=== PATIENT | female | born 1980 | race Asian ===

== ENCOUNTER 2018-06-06 17:10 | Emergency (ER) | payer SELFPAY ==
[~2018-06-06] VITALS: Ht 152.4 cm; Wt 50.3 kg
[2018-06-06 17:28] VITALS: BP_SYST 145
[2018-06-06 19:29] VITALS: BP_SYST 165
== END 2018-06-06 19:29 | disposition home or self-care (01) ==
LOC: SED 17:10
DX: I10 Essential (primary) hypertension (principal); R00.2 Palpitations
CPT/HCPCS: 93005; 99283